=== PATIENT | female | born 1975 | race Caucasian/White ===

== ENCOUNTER 2017-01-08 05:37 | Day surgery (SDC) | payer BC ==
[2016-12-27 11:03] LABS: HEMATOCRIT 43.1 % (36.0-47.0); HEMOGLOBIN 13.8 g/dL (12.0-15.5); HGB HCT DIFFERENCE -1.7; MEAN CORPUSCULAR HEMOGLOBIN 28.1 pg (27.0-33.4); MEAN CORPUSCULAR VOLUME 88 fl (80-97); RED CELL DISTRIBUTION WIDTH 13.4 % (11.5-14.0); WHITE BLOOD COUNT 7.1 10^3/uL (4.0-10.5)
[2016-12-27 11:10] LABS: PROTHROMBIN TIME 12.1 SEC (11.4-15.4)
[2016-12-27 11:11] LABS: COSMETIC PTT 27.9 SEC (23.5-35.8)
[2016-12-27 11:14] LABS: PROTHROMBIN TIME 12.1 SEC (11.4-15.4)
[2016-12-27 11:15] LABS: PARTIAL THROMBOPLASTIN TIME 27.9 SEC (23.5-35.8)
[2016-12-27 11:43] LABS: ANION GAP 11 (5-19); BLOOD UREA NITROGEN 21 mg/dL (7-20); CALCIUM 10.2 mg/dL (8.4-10.2); CARBON DIOXIDE 28 mmol/L (22-30); CHLORIDE 104 mmol/L (98-107); CREATININE RESULT 1.12 mg/dL (0.52-1.25); GLUCOSE 84 mg/dL (75-110); POTASSIUM 4.8 mmol/L (3.6-5.0); SODIUM 143.1 mmol/L (137-145)
--- NOTE | 2016-12-27 12:53 | EKG REPORT ---
SEVERITY:- NORMAL ECG - SINUS RHYTHM : Confirmed by: Devonte Franklin MD 27-Dec-2016 12:52:39
[~2017-01-08 05:37] MED LIST: CEFAZOLIN 1 GM/D5W RTU 1 GM/50 ML RTUPB IV PRN; LACTATED RINGERS 1000 ML IV PRN; LIDOCAINE 0.5% INJ-PF (5 MG/ML) 50 ML SDV SUBCUT PRN
[2017-01-08] MEDS ORDERED: FENTANYL CITRATE INJ/PF 100 MCG/2 ML AMPUL ONE ×2 (06:28→06:51)
[2017-01-08] MEDS ORDERED: MIDAZOLAM 2 MG/2 ML INJ ONE ×2 (06:29)
[2017-01-08] MEDS ORDERED: EPHEDRINE SULFATE INJ 50 MG/1 ML AMPULE ONE (06:29)
[2017-01-08] MEDS ORDERED: PROPOFOL INJ 200 MG/20 ML VIAL IV ONE (06:30)
[2017-01-08] MEDS ORDERED: DEXMEDETOMIDINE INJ 80 MCG/20 ML VIAL IV ONE (06:30)
[2017-01-08] MEDS ORDERED: OXYCODONE-ACETAMINOPHEN 5-325 MG TABLET PO PRN ×2 (07:49)
[2017-01-08] MEDS ORDERED: DIPHENHYDRAMINE HCL 50 MG/ML VIAL IV PRN (07:49)
[2017-01-08] MEDS ORDERED: PROMETHAZINE HCL INJ 25 MG/1 ML VIAL IV PRN ×2 (07:49)
[2017-01-08] MEDS ORDERED: MORPHINE SULFATE 10 MG/ML INJ IV PRN (07:49)
[2017-01-08] MEDS ORDERED: FENTANYL CITRATE INJ/PF 100 MCG/2 ML AMPUL IV PRN ×3 (07:49)
[2017-01-08] MEDS ORDERED: MEPERIDINE HCL/PF INJ 25 MG/1 ML DISP.SYRIN IV PRN (07:49)
[2017-01-08] MEDS ORDERED: ACETAMINOPHEN 100 ML IV ONE (08:25)
[2017-01-08] MEDS: FENTANYL CITRATE INJ/PF 100 MCG/2 ML AMPUL ONE ×2 (09:26→09:50)
--- NOTE | 2017-01-08 09:33 | Operative Report ---
Operative Report DATE OF SURGERY: 01/08/17 PREOPERATIVE DIAGNOSIS: Right carpal tunnel syndrome POSTOPERATIVE DIAGNOSIS: Same OPERATION: Right carpal tunnel releaseopen SURGEON: LUPILLO MCGINNIS ANESTHESIA: GA TISSUE REMOVED OR ALTERED: None COMPLICATIONS: None ESTIMATED BLOOD LOSS: Minimal PROCEDURE: The correct side for carpal tunnel release was identified with the patient. The patient was then brought into the operating room and placed on the operating room table in a supine position. A general anesthetic was instilled by anesthesia. The tourniquet was set at approximately 270mm Hg. The arm was then prepped with a Betadine scrub and Betadine solution and draped in a sterile aseptic manner. After the prep was performed the arm was exsanguinated with a as more with the tourniquet set as noted above at 2 70 mmHg. An outlined overlying the carpal tunnel was made and a small zig zag across the wrist was outlined. An incision was then made with a 15 blade. This was carried down through the superficial palmar fascia. The palmaris brevis was identified and was coagulated as we proceeded deeper. Dissection continued until the transverse carpal ligament was exposed. Using a [place] blade a small dissection was performed to get past the surface of the transverse carpal ligament and enter into the carpal canal. After there was exposure a [place] elevator was placed to protect the median nerve. Using the freer elevator and the tunnel while protecting the nerve [id number] the transverse carpal ligament was released distally and proximally. Throughout the dissection great caution was used to identify any anomalous branching of the median nerve and motor branch. Along the wrist a small zig zag was carried to the distal most portion of the forearm. We then went ahead and freed the distal and the brachial fascia of the forearm in order to minimize any areas of possible entrapment in the future.. After the dissection was completed confirmation of release into the distal forearm of the antebrachial fascia as well as distally showing the dark yellow fat of the palm. The arch was identified and was not jeopardized throughout the dissection. An epineurotomy was performed of along the course of the median nerve so that there will be no further areas of any compression to the nerve. Throughout the case the bipolar was used for hemostasis . Betadine saline irrigation was performed in the operative field. Once good hemostasis was obtained the closure was then performed using 4-0 and 5 -0 Prolene horizontal mattress and simple sutures. The tourniquet was then released and there was good blood flow returned to the fingers and no signs of any active bleeding at the incision line. Bacitracin was applied then Xeroform was applied and 4 x 4's were placed. A splint was then applied with web roll and Ortho-Glass with Chin wraps. Patient was then reversed from anesthesia and taken to the [facility] for recovery. This dictation was performed with straight and actually speaking. If there are any irregularities please contact the dictating physician. Subjective: No complaints Objective: Vital signs stable afebrile No bleeding Dressing intact Assessment and plan: Doing well. Elevate the operative site. Resume medications. Take antibiotics for 1 day Follow-up Full instructions were given to the patient and family and they understand Portions of this note may be dictated using [email or web address] voice recognition software. Occasional variations and spelling and vocabulary could be possible and are unintentional. Additionally, there is a chance that some errors may not be caught or corrected. Please notify the offer of any discrepancies noted or if any statements are unclear.
--- NOTE | 2017-01-08 09:35 | PDOC DISCHARGE SUMMARY ---
Discharge Summary (SDC) - Discharge Final Diagnosis: Right carpal tunnel syndrome Date of Surgery: 01/08/17 Condition: Good Treatment or Instructions: Antibiotics for 1 day, then discontinue. Elevate operative area to decrease swelling. Do not strain, or lift heavy objects. Call for excessive bleeding, increased temperature of 101, uncontrolled pain, or excessive nausea or vomiting. You may reach Dr. Antonio through his office at [phone]. In the event of an emergency after hours, then contact Dr. Antonio through [facility]. Return to the office for a postop check on . The time will be scheduled by the nursing staff of [facility] prior to discharge. Please give the patient a copy of their labs and EKG so they can bring this to their PMD. Thank you Portions of this note may be dictated using [employer] voice recognition software. Occasional variations and spelling and vocabulary could be possible and are unintentional. Additionally, there is a chance that some errors may not be caught or corrected. Please notify the offer of any discrepancies noted or if any statements are unclear. Discharge Diet: As Tolerated Discharge Activity: Activity As Tolerated - Monitor capillary refill. Keep arm elevated.
[2017-01-08 11:32] VITALS: BP 113/69
[2017-01-08] MEDS ORDERED: ONDANSETRON HCL INJ/PF 4 MG/2 ML SDV ONE (14:38)
[2017-01-08] MEDS ORDERED: PHENYLEPHRINE HCL INJ/PF 10 MG/1 ML SDV ONE (14:38)
[2017-01-08] MEDS ORDERED: KETOROLAC TROMETHAMINE 60 MG/2 ML SDV ONE (14:38)
[2017-01-08] MEDS ORDERED: LIDOCAINE 2% INJ-PF (20 MG/ML) 10 ML AMPUL ONE (14:38)
[2017-01-08] MEDS ORDERED: DEXAMETHASONE SOD PHOSPHATE INJ 4 MG/1 ML VIAL ONE (14:38)
[2017-01-08] MEDS ORDERED: GLYCOPYRROLATE INJ 0.4 MG/2 ML VIAL ONE (14:38)
== END 2017-01-08 11:30 | disposition home or self-care (01) ==
LOC: OROUT 05:37
PROVIDERS: ATTEND Plastic Surgery
PROC: 01N50ZZ Release Median Nerve, Open Approach (ICD-10-PCS; principal; 2017-01-08 08:00)
DX: G56.01 Carpal tunnel syndrome, right upper limb (principal); J45.909 Unspecified asthma, uncomplicated; I10 Essential (primary) hypertension; M06.9 Rheumatoid arthritis, unspecified; K21.9 Gastro-esophageal reflux disease without esophagitis; M79.641 Pain in right hand; Z79.899 Other long term (current) drug therapy
CPT/HCPCS: 93005; 36415 ×2; 84132; 84703; 85027; 85610; 85730; 81025; 80048; 93010; 64721; J2250; J0690; J1100; J1885; J3010; J2370; J2405; J2704; J3490 ×2; J0131; 1810; 81000

== ENCOUNTER → 2018-08-18 | Outpatient (CLI) | payer BC ==
--- NOTE | 2018-08-18 16:06 | RADIOLOGY REPORT (SQ) ---
EXAM DESCRIPTION: CHEST PA/LATERAL COMPLETED DATE/TIME: 08/18/2018 3:01 pm REASON FOR STUDY: BRONCHITIS COMPARISON: None. EXAM PARAMETERS: NUMBER OF VIEWS: two views TECHNIQUE: Digital Frontal and Lateral radiographic views of the chest acquired. RADIATION DOSE: NA LIMITATIONS: none FINDINGS: LUNGS AND PLEURA: No opacities, masses or pneumothorax. No pleural effusion. MEDIASTINUM AND HILAR STRUCTURES: No masses or contour abnormalities. HEART AND VASCULAR STRUCTURES: Heart normal size. No evidence for failure. BONES: No acute findings. HARDWARE: None in the chest. OTHER: No other significant finding. IMPRESSION: NO SIGNIFICANT RADIOGRAPHIC FINDING IN THE CHEST. TECHNICAL DOCUMENTATION: JOB ID: [id number] [employer]- All Rights Reserved Reading location - IP/workstation name: [email or web address]
== END ==
LOC: OD 14:46
PROVIDERS: ATTEND Family Medicine
DX: J40 Bronchitis, not specified as acute or chronic (principal)
CPT/HCPCS: 71046